=== PATIENT | male | born 2000 | race Caucasian/White ===

== ENCOUNTER 2022-01-14 13:56 | Observation (INO) ==
[2022-01-14] MEDS ORDERED: fentaNYL 100 mcg/2 ml 50 MCG/ML VIAL IV SLOW PU ONE ×2 (14:07→15:41)
[2022-01-14] MEDS ORDERED: oxyCODONE/Acetamin 5/325 mg TAB PO PRN ×2 (16:14)
[2022-01-14] MEDS ORDERED: diPHENhydraMINE 25 mg TAB PO PRN (16:14)
[2022-01-14] MEDS ORDERED: Morphine 4 MG/ML VIAL (1 ml) IV ONE (16:44)
[2022-01-14 16:45] LABS: ABS Lymphocytes 1.3 10^3/ul (1.0-4.8); ABS Monocytes 0.6 10^3/ul (0-0.8); ABS Neutrophils 15.5 10^3/ul (1.5-7.7); Eosinophil % 0.1 %; Hematocrit 42 % (42-52); Hemoglobin 14.1 g/dL (14.0-18.0); Lymphocyte % 7.2 %; Mean Corpuscular HGB Conc 34 g/dL (31-36); Mean Corpuscular Hemoglobin 29 pg (27-31); Mean Corpuscular Volume 85 fL (80-94); Mean Platelet Volume 6.5 fL (7.4-10.4); Platelet Count 243 10^3/uL (150-450); Red Blood Count 4.92 10^6 /uL (4.18-5.48); Red Cell Distribution Width 14 % (10-15); White Blood Count 17.4 10^3/uL (3.5-10.8)
[2022-01-14 16:56] LABS: INR 1.19 (0.86-1.15)
[2022-01-14 17:15] LABS: Albumin 4.1 g/dL (3.2-5.2); Albumin/Globulin Ratio 1.5 (1-3); Calcium 9.2 mg/dL (8.6-10.3); Globulin 2.7 g/dL (2-4); Potassium 3.8 mmol/L (3.5-5.0); Total Bilirubin 0.7 mg/dL (0.2-1.0); Total Protein 6.8 g/dL (6.4-8.9); eGFR CKD-EPI 125.9 (>60)
[2022-01-14] MEDS: Morphine 10 MG/ML VIAL (1 ml) IV PRN ×2 (18:56→21:57)
[2022-01-15] MEDS: Morphine 10 MG/ML VIAL (1 ml) IV PRN ×4 (00:38→10:23)
[2022-01-15] MEDS ORDERED: DiMENhydriNATE IV 50 mg/ml 1 ml VIAL IV PUSH ONE (11:57)
[2022-01-15] MEDS ORDERED: Ondansetron 4 mg VIAL 2 MG/ML 2 ml VIAL IV PRN (11:57)
[2022-01-15] MEDS ORDERED: HYDROcodone/ACETAMIN 5/325 mg TAB PO PRN (11:57)
[2022-01-15] MEDS ORDERED: fentaNYL 100 mcg/2 ml 50 MCG/ML VIAL IV PRN (11:57)
[2022-01-15] MEDS ORDERED: Buffered Lidocaine 1% SYRIN 1 ml INTRADERM ONE (11:57)
[2022-01-15] MEDS ORDERED: Metoclopramide 5 MG/ML VIAL (10 mg) IV PRN (11:57)
[2022-01-15] MEDS ORDERED: Naloxone 0.4 mg VIAL 0.4 mg/ml 1 ml VIAL IV PRN (11:57)
[2022-01-15] MEDS ORDERED: Lactated Ringers 1000 ml BAG 1,000 ML IV SCH (12:00)
[2022-01-15] MEDS ORDERED: ceFAZolin 2 GM PREMIX 2 GM/50 ML BAG ONE (12:10)
[2022-01-15] MEDS ORDERED: Bupivacaine 0.5% 50 ML MDV VIAL ONE (12:25)
[2022-01-15] MEDS ORDERED: Propofol 10 MG/ML 20 ML BTL ONE (12:38)
[2022-01-15] MEDS ORDERED: Lidocaine 2% PF 5 ML VIAL ONE (12:38)
[2022-01-15] MEDS ORDERED: Midazolam 2 mg/2 ml VIAL 1 mg/ml 2 ml VIAL (2 mg) ONE (12:38)
[2022-01-15] MEDS ORDERED: fentaNYL 100 mcg/2 ml 50 MCG/ML VIAL ONE (12:39)
[2022-01-15] MEDS ORDERED: Ondansetron 4 mg VIAL 2 MG/ML 2 ml VIAL ONE (13:23)
[2022-01-15] MEDS ORDERED: Acetaminophen IV 1 GM/100ML 100 ML IV ONE (13:23)
[2022-01-15] MEDS ORDERED: Dexamethasone IV 4 MG/ML VIAL 1 ml VIAL ONE (13:23)
[2022-01-15] MEDS ORDERED: HYDROmorphone 0.5 MG/0.5 ML SYRINGE ONE ×2 (13:45→15:22)
[2022-01-15] MEDS ORDERED: oxyCODONE/Acetamin 5/325 mg TAB ONE (16:40)
[2022-01-15 17:46] VITALS: BP 146/101
== END 2022-01-15 17:50 | disposition home or self-care (01) ==
LOC: ED 13:56 → EDHOLD 13:56 → SSU 18:00
PROVIDERS: ADMIT Physician Assistant; ATTEND Orthopaedic Surgery